=== PATIENT | female | born 1975 | race Caucasian/White ===

== ENCOUNTER 2022-03-20 20:09 | Inpatient (IN) ==
[2022-03-20] MEDS ORDERED: cefTRIAXone 2 gm/50 mL D5W 2 GM/50 ML BAG IV ONE (22:50)
[2022-03-20] MEDS ORDERED: DOXYcycline 100 MG in NS 0.9% 250 ml 250 ML IVPB ONE (22:50)
[2022-03-20 23:12] LABS: ABS Basophils 0.1 10^3/ul (0-0.2); ABS Eosinophils 0.1 10^3/ul (0-0.6); ABS Lymphocytes 3.3 10^3/ul (1.0-4.8); ABS Monocytes 0.5 10^3/ul (0-0.8); ABS Neutrophils 4.9 10^3/ul (1.5-7.7); Eosinophil % 0.9 %; Hematocrit 39 % (35-47); Lymphocyte % 37.1 %; Mean Corpuscular HGB Conc 34 g/dL (31-36); Mean Corpuscular Hemoglobin 31 pg (27-31); Mean Corpuscular Volume 91 fL (80-97); Mean Platelet Volume 7.9 fL (7.4-10.4); Nucleated Red Blood Cells % 0.1; Platelet Count 277 10^3/uL (150-450); Red Blood Count 4.22 10^6 /uL (3.70-4.87); Red Cell Distribution Width 13 % (10-15); White Blood Count 8.8 10^3/uL (3.5-10.8)
[2022-03-20 23:38] LABS: Albumin 3.9 g/dL (3.2-5.2); Albumin/Globulin Ratio 1.3 (1-3); Calcium 9.8 mg/dL (8.6-10.3); Potassium 3.8 mmol/L (3.5-5.0); Total Bilirubin 0.5 mg/dL (0.2-1.0); Total Protein 6.9 g/dL (6.4-8.9); eGFR CKD-EPI 86.9 (>60)
[2022-03-21 00:16] LABS: HIV 4th Generation Nonreactive (Nonreactive)
[2022-03-21] MEDS ORDERED: Ondansetron 4 mg VIAL 2 MG/ML 2 ml VIAL IV PRN (00:30)
[2022-03-21] MEDS ORDERED: Albuterol HFA INHALER 8 gm MDI INH PRN (00:39)
[2022-03-21] MEDS: Enoxaparin 40 MG/0.4 ML SYR SUBCUT SCH ×2 (01:23→20:18)
[2022-03-21] MEDS ORDERED: Lidocaine 1% w EPI 1:100,000 MDV 20 ML VIAL INJ ONE (02:52)
[2022-03-21] MEDS ORDERED: Lidocaine 1% VIAL 10 MG/ML VIAL INJ ONE (03:07)
[2022-03-21] MEDS ORDERED: Lidocaine 1% MPF 5 ML VIAL ONE ×2 (03:08→03:15)
[2022-03-21] MEDS ORDERED: Midazolam 2 mg/2 ml VIAL 1 mg/ml 2 ml VIAL (2 mg) IV SLOW PU ONE (03:16)
[2022-03-21 04:32] LABS: Body Fluid Source Cerebral Spinal
[2022-03-21 04:45] LABS: CSF Glucose 50 mg/dL (40-70)
[2022-03-21 05:19] LABS: Hepatitis C Antibody Negative (Negative)
[2022-03-21 05:59] LABS: Body Fluid Appearance Clear; Body Fluid Color Colorless
[2022-03-21 06:00] LABS: CSF Tube # 4
[2022-03-21 06:01] LABS: Body Fluid WBC 70 /mcL
[2022-03-21 06:06] LABS: Body Fluid Mono 5 %; Body Fluid Total Cells Counted 200
[2022-03-21 06:55] LABS: ABS Eosinophils 0.1 10^3/ul (0-0.6); ABS Monocytes 0.4 10^3/ul (0-0.8); ABS Neutrophils 6.6 10^3/ul (1.5-7.7); Eosinophil % 0.7 %; Hematocrit 37 % (35-47); Hemoglobin 12.7 g/dL (12.0-16.0); Lymphocyte % 21.9 %; Mean Corpuscular HGB Conc 34 g/dL (31-36); Mean Corpuscular Hemoglobin 31 pg (27-31); Mean Corpuscular Volume 92 fL (80-97); Platelet Count 243 10^3/uL (150-450); Red Blood Count 4.03 10^6 /uL (3.70-4.87); Red Cell Distribution Width 13 % (10-15); White Blood Count 9.2 10^3/uL (3.5-10.8)
[2022-03-21 07:11] LABS: Potassium 3.7 mmol/L (3.5-5.0); eGFR CKD-EPI 107.7 (>60)
[2022-03-21 09:03] LABS: C Reactive Protein 6.64 mg/L (<8.01)
[2022-03-21] MEDS: Venlafaxine XR 75 mg PO SCH (09:17)
[2022-03-21] MEDS: Nystatin TOP POWDER 15 GM BTL TOPICAL SCH ×3 (09:18→21:19)
[2022-03-21] MEDS ORDERED: NS 0.9% IVPB SCH ×2 (11:00→11:30)
[2022-03-21] MEDS ORDERED: PENICILLIN POTASSIUM IVPB SCH ×2 (11:00→11:30)
[2022-03-21] MEDS ORDERED: LoraTADine 10 mg TAB (NF) PO ONE (12:19)
[2022-03-21 14:00] LABS: RPR Reactive (Nonreactive)
[2022-03-21] MEDS ORDERED: [UNRECOGNIZED DRUG - OTHER] IV ONE (15:00)
[2022-03-21] MEDS ORDERED: PENICILLIN IV ONE ×3 (15:30→17:30)
[2022-03-21] MEDS ORDERED: [UNRECOGNIZED DRUG - REMARK] IV ONE (16:00)
[2022-03-21] MEDS ORDERED: [UNRECOGNIZED DRUG - REMARK] IV ONE (17:00)
[2022-03-21] MEDS ORDERED: [UNRECOGNIZED DRUG - OTHER] IV ONE (18:00)
[2022-03-21] MEDS ORDERED: [UNRECOGNIZED DRUG - OTHER] IV ONE (18:30)
[2022-03-21] MEDS ORDERED: [UNRECOGNIZED DRUG - REMARK] IV ONE (19:00)
[2022-03-21] MEDS ORDERED: [UNRECOGNIZED DRUG - OTHER] IV ONE (19:30)
[2022-03-21] MEDS ORDERED: PENICILLIN POTASSIUM IVPB ONE (20:00)
[2022-03-21] MEDS ORDERED: NS 0.9% IVPB ONE (20:00)
[2022-03-21] MEDS ORDERED: cefTRIAXone 2 gm/50 mL D5W 2 GM/50 ML BAG IV SCH (23:00)
[2022-03-22] MEDS ORDERED: [UNRECOGNIZED DRUG - OTHER] IV ONE (07:30)
[2022-03-22] MEDS: Nystatin TOP POWDER 15 GM BTL TOPICAL SCH ×3 (07:43→20:42)
[2022-03-22] MEDS: Venlafaxine XR 75 mg PO SCH (07:43)
[2022-03-22] MEDS ORDERED: PENICILLIN IV ONE ×3 (08:00→10:00)
[2022-03-22] MEDS ORDERED: [UNRECOGNIZED DRUG - REMARK] IV ONE (08:30)
[2022-03-22] MEDS ORDERED: [UNRECOGNIZED DRUG - REMARK] IV ONE (09:30)
[2022-03-22] MEDS ORDERED: [UNRECOGNIZED DRUG - OTHER] IV ONE (10:30)
[2022-03-22] MEDS ORDERED: [UNRECOGNIZED DRUG - OTHER] IV ONE (11:00)
[2022-03-22] MEDS ORDERED: [UNRECOGNIZED DRUG - REMARK] IV ONE (11:30)
[2022-03-22] MEDS ORDERED: [UNRECOGNIZED DRUG - OTHER] IV ONE (12:00)
[2022-03-22] MEDS ORDERED: PENICILLIN POTASSIUM IVPB ONE (12:30)
[2022-03-22] MEDS ORDERED: NS 0.9% IVPB ONE (12:30)
[2022-03-22 15:23] LABS: T.Pallidum TP-PA Positive (Negative)
[2022-03-22] MEDS ORDERED: NS 0.9% IVPB SCH ×2 (16:30)
[2022-03-22] MEDS ORDERED: PENICILLIN POTASSIUM IVPB SCH ×2 (16:30)
[2022-03-22] MEDS: Enoxaparin 40 MG/0.4 ML SYR SUBCUT SCH (20:39)
[2022-03-22] MEDS: NS 0.9% IVPB SCH (22:19)
[2022-03-22] MEDS: PENICILLIN POTASSIUM IVPB SCH (22:19)
[2022-03-23] MEDS: NS 0.9% IVPB SCH ×6 (02:14→21:47)
[2022-03-23] MEDS: PENICILLIN POTASSIUM IVPB SCH ×6 (02:14→21:47)
[2022-03-23 05:53] LABS: ABS Basophils 0.1 10^3/ul (0-0.2); ABS Eosinophils 0.2 10^3/ul (0-0.6); ABS Lymphocytes 3.1 10^3/ul (1.0-4.8); ABS Monocytes 0.5 10^3/ul (0-0.8); ABS Neutrophils 3.1 10^3/ul (1.5-7.7); Eosinophil % 2.6 %; Hematocrit 39 % (35-47); Hemoglobin 13.1 g/dL (12.0-16.0); Lymphocyte % 45.2 %; Mean Corpuscular HGB Conc 33 g/dL (31-36); Mean Corpuscular Hemoglobin 30 pg (27-31); Mean Corpuscular Volume 91 fL (80-97); Mean Platelet Volume 7.7 fL (7.4-10.4); Platelet Count 251 10^3/uL (150-450); Red Blood Count 4.31 10^6 /uL (3.70-4.87); Red Cell Distribution Width 13 % (10-15); White Blood Count 6.9 10^3/uL (3.5-10.8)
[2022-03-23 06:19] LABS: Calcium 9.8 mg/dL (8.6-10.3); Magnesium 1.5 mg/dL (1.9-2.7); Potassium 3.6 mmol/L (3.5-5.0); eGFR CKD-EPI 107.7 (>60)
[2022-03-23] MEDS ORDERED: Potassium Chloride LIQUID 20 MEQ/15 ML LIQUID PO ONE (06:21)
[2022-03-23] MEDS ORDERED: Magnesium Sulfate 2 gm BAG 2 GM/50 ML BAG IVPB ONE (06:21)
[2022-03-23] MEDS: Nystatin TOP POWDER 15 GM BTL TOPICAL SCH ×3 (08:12→20:40)
[2022-03-23] MEDS: Venlafaxine XR 75 mg PO SCH (08:12)
[2022-03-23] MEDS: Enoxaparin 40 MG/0.4 ML SYR SUBCUT SCH (20:54)
[2022-03-24] MEDS: NS 0.9% IVPB SCH ×6 (01:34→21:50)
[2022-03-24] MEDS: PENICILLIN POTASSIUM IVPB SCH ×6 (01:34→21:50)
[2022-03-24 05:23] LABS: ABS Eosinophils 0.2 10^3/ul (0-0.6); ABS Lymphocytes 2.8 10^3/ul (1.0-4.8); ABS Monocytes 0.5 10^3/ul (0-0.8); ABS Neutrophils 3.2 10^3/ul (1.5-7.7); Eosinophil % 2.4 %; Hematocrit 36 % (35-47); Hemoglobin 12.2 g/dL (12.0-16.0); Lymphocyte % 42.3 %; Mean Corpuscular HGB Conc 34 g/dL (31-36); Mean Corpuscular Hemoglobin 31 pg (27-31); Mean Corpuscular Volume 90 fL (80-97); Platelet Count 219 10^3/uL (150-450); Red Blood Count 3.99 10^6 /uL (3.70-4.87); Red Cell Distribution Width 13 % (10-15); White Blood Count 6.7 10^3/uL (3.5-10.8)
[2022-03-24 06:02] LABS: Calcium 9.3 mg/dL (8.6-10.3); Magnesium 1.5 mg/dL (1.9-2.7); Potassium 3.3 mmol/L (3.5-5.0); eGFR CKD-EPI 109.8 (>60)
[2022-03-24] MEDS ORDERED: Magnesium Sulfate IV 3 GM in NS 0.9% 100 ml BAG 100 ML IVPB ONE (07:26)
[2022-03-24] MEDS ORDERED: Potassium Chlor 20 meq TAB.ER PO ONE (07:27)
[2022-03-24] MEDS: Venlafaxine XR 75 mg PO SCH (07:59)
[2022-03-24] MEDS ORDERED: Magnesium Sulfate 2 GM IV (Premix) IVPB ONE (08:00)
[2022-03-24] MEDS: Nystatin TOP POWDER 15 GM BTL TOPICAL SCH ×3 (08:13→20:11)
[2022-03-24] MEDS ORDERED: Magnesium Sulfate 1 GM IV 1 GM/100 ML BAG IV ONE (09:00)
[2022-03-24] MEDS: Enoxaparin 40 MG/0.4 ML SYR SUBCUT SCH (20:11)
[2022-03-25] MEDS: PENICILLIN POTASSIUM IVPB SCH ×6 (02:07→22:05)
[2022-03-25] MEDS: NS 0.9% IVPB SCH ×6 (02:07→22:05)
[2022-03-25 05:40] LABS: Calcium 9.3 mg/dL (8.6-10.3); Magnesium 1.7 mg/dL (1.9-2.7); Potassium 4.1 mmol/L (3.5-5.0); eGFR CKD-EPI 110.2 (>60)
[2022-03-25] MEDS ORDERED: Magnesium Sulfate IV 3 GM in NS 0.9% 100 ml BAG 100 ML IVPB ONE (06:18)
[2022-03-25] MEDS ORDERED: Magnesium Sulfate 2 GM IV (Premix) IVPB ONE (06:30)
[2022-03-25] MEDS ORDERED: Magnesium Sulfate 1 GM IV 1 GM/100 ML BAG IV ONE (07:30)
[2022-03-25] MEDS: Venlafaxine XR 75 mg PO SCH (08:54)
[2022-03-25] MEDS: Nystatin TOP POWDER 15 GM BTL TOPICAL SCH ×3 (08:55→19:50)
[2022-03-25] MEDS: Enoxaparin 40 MG/0.4 ML SYR SUBCUT SCH (19:49)
[2022-03-25 23:51] LABS: IgG Immunoblot Negative (Negative); IgM Immunoblot Positive (Negative)
[2022-03-26] MEDS: NS 0.9% IVPB SCH ×4 (01:56→13:56)
[2022-03-26] MEDS: PENICILLIN POTASSIUM IVPB SCH ×4 (01:56→13:56)
[2022-03-26] MEDS: Venlafaxine XR 75 mg PO SCH (08:46)
[2022-03-26] MEDS: Nystatin TOP POWDER 15 GM BTL TOPICAL SCH ×2 (08:47→13:57)
[2022-03-26 11:24] VITALS: BP 110/68
[2022-03-27 15:08] LABS: CSF Oligoclonal Bands 6 bands; Oligoclonal Proteins Interpret 2 bands (<2); Serum Oligoclonal Bands 4 bands
== END 2022-03-26 15:30 | disposition home or self-care (01) | DRG 42 ==
LOC: ED 20:09 → EDHOLD 03-21 00:30 → MED 03-21 12:49 → ICU 03-22 08:01 → MED 03-23 14:00
PROVIDERS: ADMIT Internal Medicine; ATTEND Internal Medicine